=== PATIENT | female | born 1980 | race African-American/Black ===

== ENCOUNTER 2017-04-16 22:51 | Emergency (ER) | payer MEDICAID ==
[~2017-04-16] VITALS: Ht 162.6 cm; Wt 60.0 kg
[~2017-04-16 22:51] MED LIST: DIPH25CA83 PO; PREN-88 PO
[2017-04-17] MEDS ORDERED: AZITHROMYCIN 500 MG TABLET PO ONE (03:15)
[2017-04-17 03:20] LABS: CLARITY URINE CLOUDY (CLEAR); COLOR URINE YELLOW (YELLOW); GLUCOSE URINE NEGATIVE (NEGATIVE); KETONES URINE NEGATIVE (NEGATIVE); LEUKOCYTE ESTERASE URINE 2+ (NEGATIVE); NITRITE URINE NEGATIVE (NEGATIVE); OCCULT BLOOD URINE 2+ (NEGATIVE); PH URINE 6.5 (4.5-8.0); PROTEIN URINE NEGATIVE (NEGATIVE); SPECIFIC GRAVITY URINE 1.011 (1.005-1.030); UROBILINOGEN URINE 0.2 E.U./dL (0.2-1.0)
[2017-04-17 04:36] VITALS: BP 139/66
== END 2017-04-17 05:10 | disposition home or self-care (01) ==
LOC: ER 22:51
DX: J18.9 Pneumonia, unspecified organism (principal); N39.0 Urinary tract infection, site not specified; K64.9 Unspecified hemorrhoids; J45.909 Unspecified asthma, uncomplicated; Z88.0 Allergy status to penicillin
CPT/HCPCS: 71010; 81001; 81025; 99285